=== PATIENT | female | born 1980 | race Caucasian/White ===

== ENCOUNTER → 2024-06-07 | Outpatient (CLI) | payer BC, SELFPAY ==
[2024-06-07 13:01] LABS: Iron 47 ug/dL (50-170); Iron Binding Capacity,Total 503 ug/dL (250-450); PERCENT IRON SATURATION 9.3 % (15.0-55.0)
== END | disposition home or self-care (01) ==
PROVIDERS: PCP Family Medicine; Referring Provider Family Medicine; Visit Provider Family Medicine
DX: D64.9 Anemia, unspecified (principal)
CPT/HCPCS: 36415; 83540; 83550